=== PATIENT | female | born 2000 | race Caucasian/White ===

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

== ENCOUNTER 2021-01-17 01:34 | Emergency (ER) | payer OTHER, SELFPAY ==
--- NOTE | 2021-01-17 04:15 | EDPHYS ---
Physician Documentation [facility] Name: Lelia Phelan Age: 20 yrs Sex: Female : 2000 Arrival Date: 01/17/2021 Time: 01:36 Bed 5 Private MD: ED Physician Calvin Tobar HPI: 01/17 02:26 This 20 yrs old Female presents to ER via Ambulatory with complaints of pkl Headache. 02:26 The patient complains of pain to the left occipital area and right occipital area. The pkl patient describes the headache as constant. Onset: The symptoms/episode began/occurred just prior to arrival, 4 hour(s) ago. Associated signs and symptoms: The patient has no apparent associated signs or symptoms. The patient has not experienced similar symptoms in the past. 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 - Social history:: Smoking status: Patient denies any tobacco usage or history of. ROS: 02:26 Eyes: Negative for injury, pain, redness, and discharge, ENT: Negative for injury, pkl pain, and discharge, Neck: Negative for injury, pain, and swelling, Cardiovascular: Negative for chest pain, palpitations, and edema, Respiratory: Negative for shortness of breath, cough, wheezing, and pleuritic chest pain, Abdomen/GI: Negative for abdominal pain, nausea, vomiting, diarrhea, and constipation, Back: Negative for injury and pain, : Negative for injury, bleeding, discharge, and swelling, MS/Extremity: Negative for injury and deformity, Skin: Negative for injury, rash, and discoloration. 02:26 Neuro: Positive for headache, of the occiptal region, Negative for loss of consciousness. Exam: 02:26 Head/Face: Normocephalic, atraumatic. Eyes: Pupils equal round and reactive to light, pkl extra-ocular motions intact. Lids and lashes normal. Conjunctiva and sclera are non-icteric and not injected. Cornea within normal limits. Periorbital areas with no swelling, redness, or edema. ENT: Nares patent. No nasal discharge, no septal abnormalities noted. Tympanic membranes are normal and external auditory canals are clear. Oropharynx with no redness, swelling, or masses, exudates, or evidence of obstruction, uvula midline. Mucous membranes moist. Neck: Trachea midline, no thyromegaly or masses palpated, and no cervical lymphadenopathy. Supple, full range of motion without nuchal rigidity, or vertebral point tenderness. No Meningismus. Chest/axilla: Normal chest wall appearance and motion. Nontender with no deformity. No lesions are appreciated. Cardiovascular: Regular rate and rhythm with a normal S1 and S2. No gallops, murmurs, or rubs. Normal PMI, no JVD. No pulse deficits. Respiratory: Lungs have equal breath sounds bilaterally, clear to auscultation and percussion. No rales, rhonchi or wheezes noted. No increased work of breathing, no retractions or nasal flaring. Abdomen/GI: Soft, non-tender, with normal bowel sounds. No distension or tympany. No guarding or rebound. No evidence of tenderness throughout. Back: No spinal tenderness. No costovertebral tenderness. Full range of motion. Skin: Warm, dry with normal turgor. Normal color with no rashes, no lesions, and no evidence of cellulitis. MS/ Extremity: Pulses equal, no cyanosis. Neurovascular intact. Full, normal range of motion. Neuro: Awake and alert, GCS 15, oriented to person, place, time, and situation. Cranial nerves II-XII grossly intact. Motor strength 5/5 in all extremities. Sensory grossly intact. Cerebellar exam normal. Normal gait. Vital Signs: 01:55 BP 126 / 84; Pulse 85; Resp 18; Temp 98.3(O); Pulse Ox 99% on R/A; Weight 83.91 kg; em Height 5 ft. 5 in. (165.10 cm); Pain 0/10; 01:55 Body Mass Index 30.79 (83.91 kg, 165.10 cm) em MDM: 02:19 Patient medically screened. pkl 04:12 Data reviewed: vital signs, nurses notes, radiologic studies, CT scan. pkl 01/17 02:25 Order name: CT Head Brain wo Cont pkl Administered Medications: 04:22 Drug: Motrin (ibuprofen) 600 mg Route: PO; bs2 Disposition Summary: 01/17/21 04:14 Discharge Ordered Location: Home pkl Problem: new pkl Symptoms: have improved pkl Condition: Stable pkl Diagnosis - Acute headache pkl Followup: pkl - With: Private Physician - When: 2 - 3 days - Reason: Re-evaluation by your physician Discharge Instructions: - Discharge Summary Sheet pkl Forms: - Medication Reconciliation Form pkl - Thank You Letter pkl - Antibiotic Education pkl - Prescription Opioid Use pkl Prescriptions: - Ultram 50 mg Oral Tablet - take 1 tablet by ORAL route every 6 hours As needed; 12 tablet; Refills: 0, pkl Product Selection Permitted Signatures: Dispatcher [employer] Calvin Beckett MD MD pkl Abran mR RN RN Yolette Estrella bs2
--- NOTE | 2021-01-17 04:15 | ER ---
Nurse's Notes [facility] Name: Lelia Phelan Age: 20 yrs Sex: Female : 2000 Arrival Date: 01/17/2021 Time: 01:36 Bed 5 Private MD: Diagnosis: Acute headache Presentation: 01/17 01:55 Chief complaint: Patient states: pain in the back of the head that started a few hours em ago, denies headache, N/V. Coronavirus screen: Client denies travel out of the [place] in the last 14 days. Ebola Screen: Patient negative for fever greater than or equal to 101.5 degrees Fahrenheit, and additional compatible Ebola Virus Disease symptoms Patient denies exposure to infectious person. Patient denies travel to an Ebola-affected area in the 21 days before illness onset. No symptoms or risks identified at this time. Initial Sepsis Screen: Does the patient meet any 2 criteria? No. Patient's initial sepsis screen is negative. Does the patient have a suspected source of infection? No. Patient's initial sepsis screen is negative. Risk Assessment: Do you want to hurt yourself or someone else? Patient reports no desire to harm self or others. Onset of symptoms was January 17, 2021. 01:55 Method Of Arrival: Ambulatory em 01:55 Acuity: DEREK 3 em Triage Assessment: 04:24 Headache History: The patient has had previous headaches and this one is similar to bs2 previous episodes. General: Appears in no apparent distress. comfortable, well groomed, well developed, well nourished, Behavior is calm, cooperative, appropriate for age. Pain: Pain began gradually, Also complains of photophobia. 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 - Social history:: Smoking status: Patient denies any tobacco usage or history of. Screenin:22 Abuse screen: Denies threats or abuse. Denies injuries from another. Nutritional bs2 screening: No deficits noted. Tuberculosis screening: No symptoms or risk factors identified. Fall Risk None identified. Assessment: 04:22 Pain: Complains of pain in scalp Pain currently is 4 out of 10 on a pain scale. Neuro: bs2 Level of Consciousness is awake, alert, obeys commands, Oriented to person, place, time, situation, Appropriate for age Referral Coordinator are equal bilaterally Moves all extremities. Full function Gait is steady, Speech is normal, Facial symmetry appears normal, Pupils are PERRLA, Intact Reports headache in the center of head to back. Vital Signs: 01:55 BP 126 / 84; Pulse 85; Resp 18; Temp 98.3(O); Pulse Ox 99% on R/A; Weight 83.91 kg; em Height 5 ft. 5 in. (165.10 cm); Pain 0/10; 01:55 Body Mass Index 30.79 (83.91 kg, 165.10 cm) em ED Course: 01:36 Patient arrived in ED. ag3 01:56 Triage completed. em 01:56 Arm band placed on. em 02:19 Calvin Tobar MD is Attending Physician. pkl 03:05 CT Head Brain wo Cont In Process Unspecified. EDMS 04:22 Patient has correct armband on for positive identification. Bed in low position. Call bs2 light in reach. Side rails up X 1. Pulse ox on. NIBP on. 04:22 No provider procedures requiring assistance completed. Patient did not have IV access bs2 during this emergency room visit. Administered Medications: 04:22 Drug: Motrin (ibuprofen) 600 mg Route: PO; bs2 Outcome: 04:14 Discharge ordered by . pkl 04:22 Discharged to home ambulatory. bs2 04:22 Condition: improved 04:22 Discharge instructions given to patient, Instructed on discharge instructions, follow up and referral plans. medication usage, Demonstrated understanding of instructions, follow-up care, medications, Prescriptions given X 1. 04:25 Patient left the ED. bs2 Signatures: Dispatcher [employer] EDPR Calvin Tobar MD MD pkAbran Gamble, RN RN Katiuska Szymanski [employer] [facility] Yolette Muniz bs2
[2021-01-17 04:31] VITALS: BP 126/84; TEMP 98.3; O2SAT 99
[2021-01-17] MEDS ORDERED: IBUPROFEN 200 MG TAB PO ONE (04:37)
[2021-01-17] MEDS ORDERED: IBUPROFEN 400 MG TAB ONE (04:37)
--- NOTE | 2021-01-17 14:42 | RAD REPORT ---
EXAM DESCRIPTION: CT - Head Brain Wo Cont - 01/17/2021 6:43 am CLINICAL HISTORY: Pain to back of head and forehead TECHNIQUE: Contiguous axial CT images obtained through the brain without IV contrast. Coronal and sa gittal reformatted images were provided. This exam was performed according to our departmental dose-optimization program, which includes autom ated exposure control, adjustment of the mA and/or kV according to patient size and/or use of iterati ve reconstruction technique. COMPARISON: None available for comparison FINDINGS: Brain: No significant white matter changes. No focal mass effect. Aguilar-white matter differ entiation is within normal limits. No hemorrhage. Ventricles: No ventriculomegaly or midline shift. Extra-axial spaces: No extra-axial collection or hemorrhage. Paranasal sinuses and mastoid air cells: Mild to moderate left maxillary sinus mucosal thickening. Vessels: Unremarkable Bones: Unremarkable Soft tissues: Unremarkable IMPRESSION: No acute intracranial or extra-axial abnormality. Electronically signed by: Mary Baker MD 01/17/2021 3:45 AM CDT Due to temporary technical issues with the PACS/Fluency reporting system, reports are being signed by the in house radiologists without review as a courtesy to insure prompt reporting. The interpreting radiologist is fully responsible for the content of the report.
== END 2021-01-17 04:25 | disposition home or self-care (01) ==
LOC: ER 01:34
DX: R51.9 Headache, unspecified (principal); Z88.2 Allergy status to sulfonamides
CPT/HCPCS: 70450; 99284

== ENCOUNTER 2021-09-14 06:09 | Emergency (ER) | payer OTHER ==
[2021-09-14 06:34] LABS: Absolute Lymphocytes (CBC) 2.1 K/uL (0.7-4.9); Hematocrit 36.4 % (36.0-45.0); Lymphocytes % 29.7 % (15.3-44.8); MPV 7.4 fL (7.6-11.3); RBC Red Blood Cell Count 4.54 M/uL (3.86-4.86)
[2021-09-14 06:46] LABS: BUN Blood Urea Nitrogen 13 mg/dL (7-18); Bicarbonate 26 mmol/L (21-32); Glucose Level 107 mg/dL (74-106); Potassium 4.4 mmol/L (3.5-5.1); Sodium Level 140 mmol/L (136-145)
[2021-09-14] MEDS ORDERED: KETOROLAC 30 MG/ML INJ ONE (07:05)
[2021-09-14] MEDS ORDERED: NA CHLORIDE 0.9% 1,000 ML ONE (07:05)
[2021-09-14 07:13] LABS: Urine Specific Gravity/Preg >1.030 (1.005-1.030)
[2021-09-14 07:20] LABS: Urine Bacteria LOADED /HPF (<20); Urine Mucus 2+ /HPF (NONE SEEN); Urine RBC <5 /HPF (NONE SEEN)
[2021-09-14] MEDS ORDERED: CEFTRIAXONE 1000 MG/VIAL ONE (07:36)
--- NOTE | 2021-09-14 07:46 | RAD REPORT ---
EXAM DESCRIPTION: CTAbdomen Pelvis W Contrast - 09/14/2021 7:26 am CLINICAL HISTORY: ABD PAIN COMPARISON: No comparisons TECHNIQUE: CT of the abdomen and pelvis was performed. All CT scans are performed using dose optimization technique as appropriate and may include automated exposure control or mA/KV adjustment according to patient size. FINDINGS: Lower chest: No acute abnormality. Liver: No acute abnormality or suspicious lesions. Biliary: No biliary ductal dilatation. Stomach: No significant focal abnormality. Duodenum: No significant focal abnormality. Pancreas: No significant abnormality. Spleen: No significant abnormality. Adrenal: No suspicious lesions. Kidney/ureter: No hydronephrosis. No renal calculi. Retroperitoneum: No retroperitoneal adenopathy. Vascular: No aneurysm. Bowel: Moderate rectal stool burden..Normal appendix. Peritoneum: Trace free fluid. Bladder: Grossly unremarkable. Reproductive: Possible right-sided hydrosalpinx. Bones: No acute fracture. Other: n/a IMPRESSION: Possible right-sided hydrosalpinx as could indicate pelvic inflammatory disease (PID). R ecommend clinical correlation. Consider pelvic ultrasound. Appendix is within normal limits. Moderate rectal stool burden.
[2021-09-14] MEDS ORDERED: DOXYCYCLINE 100 MG CAP PO ONE (08:26)
--- NOTE | 2021-09-14 08:34 | RAD REPORT ---
EXAM DESCRIPTION: US - Transvaginal Study Probe - 09/14/2021 8:24 am CLINICAL HISTORY: Flank pain;Abd pain Pelvic pain. COMPARISON: <Comparisons> FINDINGS: The uterus is normal in size, shape and echotexture. The uterus measures 7.3 cm The endometrial stripe measures 4 mm, normal. Both ovaries are normal in size, shape and echotexture. The right ovary has a volume of 11.1 mL. Th e left ovary has a volume of 13.6 mL. Mild fluid-filled bilateral fallopian tubes with areas of eccen tric thickening. Normal Doppler blood flow was demonstrated to both ovaries. IMPRESSION: 1. Bilateral ovarian blood flow. 2. Mildly dilated and thickened bilateral fallopian tubes that could reflect pelvic inflammatory dise ase. No abscess identified.
--- NOTE | 2021-09-14 09:30 | EDPHYS ---
Physician Documentation [facility] Name: Lelia Phelan Age: 21 yrs Sex: Female : 2000 Arrival Date: 09/14/2021 Time: 06:13 Bed 19 Private MD: ED Physician Ethan Mensah HPI: 09/14 06:22 This 21 yrs old Female presents to ER via Ambulatory with complaints of Flank Pain. kb 06:22 The patient complains of pain in the right flank. The pain does not radiate. Onset: The kb symptoms/episode began/occurred yesterday. Modifying factors: The symptoms are alleviated by nothing. the symptoms are aggravated by nothing. Associated signs and symptoms: Pertinent positives: dysuria, Pertinent negatives: diarrhea, dizziness, fever, urinary frequency, headache, hematuria, nausea, pain radiating to the lower extremities, vomiting. Severity of pain: At its worst the pain was moderate in the emergency department the pain is unchanged. The patient has not experienced similar symptoms in the past. The patient has not recently seen a physician. 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 - Social history:: Smoking status: Patient denies any tobacco usage or history of. Patient uses alcohol, only on a social basis. ROS: 06:21 Constitutional: Negative for fever, chills, and weight loss. kb 06:21 Abdomen/GI: Positive for abdominal pain, Negative for nausea, vomiting, and diarrhea. 06:21 : Positive for urinary symptoms, flank pain, burning with urination. 06:21 All other systems are negative. Exam: 06:21 Constitutional: This is a well developed, well nourished patient who is awake, alert, kb and in no acute distress. Head/Face: Normocephalic, atraumatic. ENT: Moist Mucous membranes Cardiovascular: Regular rate and rhythm with a normal S1 and S2. No gallops, murmurs, or rubs. No pulse deficits. Respiratory: Respirations even and unlabored. No increased work of breathing. Talking in full sentences Skin: Warm, dry with normal turgor. Normal color. MS/ Extremity: Pulses equal, no cyanosis. Neurovascular intact. Full, normal range of motion. Neuro: Awake and alert, GCS 15, oriented to person, place, time, and situation. Moves all extremities. Normal gait. Psych: Awake, alert, with orientation to person, place and time. Behavior, mood, and affect are within normal limits. 06:21 Abdomen/GI: Inspection: abdomen appears normal, Bowel sounds: normal, in all quadrants, Palpation: soft, in all quadrants, mild abdominal tenderness, in the right lower quadrant. 06:21 Back: CVA tenderness, that is moderate, is noted on the right. Vital Signs: 06:19 BP 151 / 97 LA Supine (/reg); Pulse 92 MON; Resp 20 S; Temp 98.4(O); Pulse Ox 99% on vc1 R/A; Weight 83.01 kg (R); Height 5 ft. 5 in. (165.10 cm) (R); Pain 9/10; 07:30 BP 110 / 64; Pulse 58; Resp 16; Pulse Ox 98% on R/A; jg9 08:00 BP 119 / 79; Pulse 72; Resp 14; Pulse Ox 100% on R/A; jg9 08:30 BP 122 / 71; Pulse 68; Resp 16 S; Pulse Ox 100% ; jg9 09:30 BP 128 / 72; Pulse 66; Resp 16 S; Pulse Ox 97% on R/A; jg9 06:19 Body Mass Index 30.45 (83.01 kg, 165.10 cm) vc1 MDM: 06:15 Patient medically screened. kb 06:21 Data reviewed: vital signs, nurses notes. Data interpreted: Pulse oximetry: on room air kb is 100 %. Interpretation: normal. 09:28 Counseling: I had a detailed discussion with the patient and/or guardian regarding: the kb historical points, exam findings, and any diagnostic results supporting the discharge/admit diagnosis, lab results, radiology results, the need for outpatient follow up, an OB/Gyne specialist, to return to the emergency department if symptoms worsen or persist or if there are any questions or concerns that arise at home. 09/14 06:18 Order name: Basic Metabolic Panel kb 09/14 06:18 Order name: CBC with Diff kb 09/14 06:18 Order name: Basic Metabolic Panel; Complete Time: 06:53 EDMS 09/14 06:18 Order name: CBC with Automated Diff; Complete Time: 06:35 EDMS 09/14 06:18 Order name: Urine Microscopic Only; Complete Time: 07:21 EDMS 09/14 06:56 Order name: Urine --Ancillary (enter results); Complete Time: 07:14 mw2 09/14 06:58 Order name: CT Abd/Pelvis - IV Contrast Only; Complete Time: 07:48 kb 09/14 07:21 Order name: Urine Culture EDMS 09/14 07:48 Order name: US Transvaginal Study (Probe); Complete Time: 08:44 kb 09/14 06:18 Order name: IV Saline Lock; Complete Time: 06:27 kb 09/14 06:18 Order name: Labs collected and sent; Complete Time: 06:27 kb 09/14 06:18 Order name: Urine Dipstick-Ancillary (obtain specimen); Complete Time: 06:57 kb 09/14 06:18 Order name: Urine Test (obtain specimen); Complete Time: 06:57 kb Administered Medications: 07:04 Drug: NS 0.9% 1000 ml Route: IV; Rate: 1000 ml; Site: right antecubital; jg9 09:15 Follow up: IV Status: Completed infusion; IV Intake: 1000ml jg9 07:05 Drug: Ketorolac 15 mg Route: IVP; Site: right antecubital; jg9 07:31 Follow up: Response: No adverse reaction; Pain is decreased jg9 07:35 Drug: Rocephin (cefTRIAXone) 1 grams Route: IV; Rate: calculated rate; Site: right 9 antecubital; 08:16 Follow up: Response: No adverse reaction jg9 08:25 Drug: Doxycycline 100 mg Route: PO; jg9 08:34 Follow up: Response: No adverse reaction jg9 Disposition: 19:44 Co-signature as Attending Physician, Ethan Mensah MD I agree with the assessment and rn plan of care. Disposition Summary: 09/14/21 09:29 Discharge Ordered Location: Home kb Condition: Stable kb Diagnosis - UTI/ Urinary tract infection, site not specified kb - Female pelvic inflammatory disease, unspecified kb Followup: kb - With: Emergency Department - When: As needed - Reason: Worsening of condition Followup: kb - With: Private Physician - When: 2 - 3 days - Reason: Recheck today's complaints, Continuance of care, Re-evaluation by your physician Discharge Instructions: - Discharge Summary Sheet kb - Urinary Tract Infection, Adult, [id number] kb - Pelvic Inflammatory Disease, [id number] kb - Form - Excuse from Work, School, or Physical Activity jg9 Forms: - Medication Reconciliation Form kb - Thank You Letter kb - Antibiotic Education kb - Prescription Opioid Use kb Prescriptions: - Doxycycline Hyclate 100 mg Oral Tablet - take 1 tablet by ORAL route every 12 hours for 14 days; 28 tablet; Refills: 0, kb Product Selection Permitted - Macrobid 100 mg Oral Capsule - take 1 capsule by ORAL route every 12 hours for 7 days; 14 capsule; Refills: 0, kb Product Selection Permitted Signatures: Dispatcher [employer] Griselda Castillo FNP-C SOFTWARE TOOLS BUILD ENGINEER-Ebenb Ethan Mensah MD MD rn Gilmore, Jennifer, RN RN jg9 Emily Degroot tk1 Corrections: (The following items were deleted from the chart) 06:27 06:19 UA MICROSCOPIC+U.LAB.BRZ ordered. EDVA EDVA
--- NOTE | 2021-09-14 09:30 | ER ---
Nurse's Notes [facility] Name: Lelia Phelan Age: 21 yrs Sex: Female : 2000 Arrival Date: 09/14/2021 Time: 06:13 Bed 19 Private MD: Diagnosis: UTI/ Urinary tract infection, site not specified;Female pelvic inflammatory disease, unspecified Presentation: 09/14 06:19 Chief complaint: Patient states: Patient c/o right flank/side pain x1 day. Discomfort vc1 with urination. Coronavirus screen: Vaccine status: Patient reports being unvaccinated. Client denies travel out of the [place] in the last 14 days. At this time, the client does not indicate any symptoms associated with coronavirus-19. Ebola Screen: Patient negative for fever greater than or equal to 101.5 degrees Fahrenheit, and additional compatible Ebola Virus Disease symptoms Patient denies exposure to infectious person. Patient denies travel to an Ebola-affected area in the 21 days before illness onset. Initial Sepsis Screen: Does the patient meet any 2 criteria? No. Patient's initial sepsis screen is negative. Does the patient have a suspected source of infection? No. Patient's initial sepsis screen is negative. Risk Assessment: Do you want to hurt yourself or someone else? Patient reports no desire to harm self or others. Onset of symptoms was September 13, 2021. 06:19 Method Of Arrival: Ambulatory vc1 06:19 Acuity: DEREK 3 vc1 Triage Assessment: 06:22 General: Appears uncomfortable, well groomed, well developed, well nourished, Behavior tk1 is cooperative, appropriate for age, crying. Pain: Complains of pain in right flank Pain does not radiate. Pain currently is 9 out of 10 on a pain scale. Quality of pain is described as sharp, Pain began 1 day ago. Is intermittent, Alleviated by nothing. : Reports pain with urination. 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 - Social history:: Smoking status: Patient denies any tobacco usage or history of. Patient uses alcohol, only on a social basis. Screenin:29 Abuse screen: Denies threats or abuse. Nutritional screening: No deficits noted. vc1 Tuberculosis screening: No symptoms or risk factors identified. Fall Risk None identified. Assessment: 06:28 General: Appears uncomfortable, ill, Behavior is anxious, crying. Pain: Complains of vc1 pain in right flank and right lower quadrant. Neuro: Level of Consciousness is awake, alert, obeys commands, Oriented to person, place, time, situation, none. : Reports burning with urination, pain in right flank(s), lower quadrant(s) with urination. 07:00 General: Appears uncomfortable, Behavior is crying. Pain: Complains of pain in right jg9 flank and right lower quadrant Pain does not radiate. Pain currently is 9 out of 10 on a pain scale. Noted to be crying. Neuro: No deficits noted. Neuro: No deficits noted. Level of Consciousness is awake, alert, obeys commands, Oriented to person, place, time, situation. Cardiovascular: No deficits noted. Respiratory: No deficits noted. GI: Reports upper abdominal pain. : Reports burning with urination, pain in right flank(s), lower quadrant(s) with urination. EENT: No deficits noted. Derm: No deficits noted. Musculoskeletal: No deficits noted. 07:35 Pain: Complains of pain in right flank and right lower quadrant Pain currently is 6 out jg9 of 10 on a pain scale. level that patient reports is acceptable is 6 out of 10 on a pain scale. Vital Signs: 06:19 BP 151 / 97 LA Supine (/reg); Pulse 92 MON; Resp 20 S; Temp 98.4(O); Pulse Ox 99% on vc1 R/A; Weight 83.01 kg (R); Height 5 ft. 5 in. (165.10 cm) (R); Pain 9/10; 07:30 BP 110 / 64; Pulse 58; Resp 16; Pulse Ox 98% on R/A; jg9 08:00 BP 119 / 79; Pulse 72; Resp 14; Pulse Ox 100% on R/A; jg9 08:30 BP 122 / 71; Pulse 68; Resp 16 S; Pulse Ox 100% ; jg9 09:30 BP 128 / 72; Pulse 66; Resp 16 S; Pulse Ox 97% on R/A; jg9 06:19 Body Mass Index 30.45 (83.01 kg, 165.10 cm) vc1 ED Course: 06:13 Patient arrived in ED. ja2 06:15 Griselda De Souza FNP-C is [facility]. kb 06:15 Ethan Mensah MD is Attending Physician. kb 06:21 Triage completed. vc1 06:22 Arm band placed on right wrist. tk1 06:27 Rubina Franco, MEENA is Primary Nurse. vc1 06:27 CBC with Diff Sent. oe 06:27 Basic Metabolic Panel Sent. oe 06:27 Inserted saline lock: 22 gauge in right antecubital area, using aseptic technique. vc1 Blood collected. 06:29 Patient has correct armband on for positive identification. Placed in gown. Bed in low vc1 position. Call light in reach. Pulse ox on. NIBP on. 06:57 Urine Microscopic Only Sent. vc1 07:[address] A[address] Scan. jg9 07:26 CT Abd/Pelvis - IV Contrast Only In Process Unspecified. EDMS 08:24 US Transvaginal Study (Probe) In Process Unspecified. EDMS 09:50 No provider procedures requiring assistance completed. jg9 09:51 IV discontinued. jg9 Administered Medications: 07:04 Drug: NS 0.9% 1000 ml Route: IV; Rate: 1000 ml; Site: right antecubital; jg9 09:15 Follow up: IV Status: Completed infusion; IV Intake: 1000ml jg9 07:05 Drug: Ketorolac 15 mg Route: IVP; Site: right antecubital; jg9 07:31 Follow up: Response: No adverse reaction; Pain is decreased jg9 07:35 Drug: Rocephin (cefTRIAXone) 1 grams Route: IV; Rate: calculated rate; Site: right j9 antecubital; 08:16 Follow up: Response: No adverse reaction jg9 08:25 Drug: Doxycycline 100 mg Route: PO; jg9 08:34 Follow up: Response: No adverse reaction jg9 Intake: 09:15 IV: 1000ml; Total: 1000ml. jg9 Outcome: 09:29 Discharge ordered by . fadi 09:49 Patient left the ED. jg9 09:50 Discharged to home ambulatory. jg9 09:50 Condition: stable 09:50 Discharge instructions given to patient, Instructed on discharge instructions, follow up and referral plans. Demonstrated understanding of instructions, follow-up care, medications, Prescriptions given X 2. Signatures: Dispatcher [employer] EDOH Griselda De Souza, RALPH-C VERTICAL PUNCH OPERATOR-CkBarry Bhandari Jessica ja2 Gilmore, Jennifer RN RN jg9 Emily Degroot tk1 Rubina Franco RN RN vc1
[2021-09-14 10:18] VITALS: TEMP 98.4
[2021-09-14 10:20] VITALS: O2SAT 100
[2021-09-14 10:22] VITALS: BP 122/71
== END 2021-09-14 09:49 | disposition home or self-care (01) ==
LOC: ER 06:09
DX: N39.0 Urinary tract infection, site not specified (principal); N73.9 Female pelvic inflammatory disease, unspecified; Z88.2 Allergy status to sulfonamides
CPT/HCPCS: 87088; 85025; 87086; 80048; 36415; 81025; 81015; 74177; 76830; Q9967; J7030; 87077; 87186; 96361; 96374; 96375; 99284